=== PATIENT | female | born 1990 | race Caucasian/White ===

== ENCOUNTER 2022-04-06 18:22 | Outpatient (CLI) | payer BC, SELFPAY | END 2022-04-06 18:23 | disposition home or self-care (01) | PROVIDERS: Visit Provider Registered Nurse | DX: Z11.3 Encounter for screening for infections with a predominantly sexual mode of transmission (principal); Z12.4 Encounter for screening for malignant neoplasm of cervix | CPT/HCPCS: 87624; 88175 ==